=== PATIENT | female | born 1940 | race Caucasian/White ===

== ENCOUNTER → 2017-02-22 | Outpatient (CLI) | payer OTHER, MEDICARE | LOC: BHFA 15:45 | PROVIDERS: ATTEND Internal Medicine Cardiovascular Disease | DX: I48.0 Paroxysmal atrial fibrillation (principal) ==

== ENCOUNTER 2018-03-19 10:14 | Day surgery (SDC) | payer OTHER ==
[2018-03-19] MEDS ORDERED: BENZOCAINE UNIT DOSE SPRAY HURRICAINE MM ONE (10:19)
[2018-03-19] MEDS ORDERED: MIDAZOLAM 2 MG/2 ML VIAL IVP ONE (10:19)
[2018-03-19] MEDS ORDERED: ATROPINE SULFATE 1 MG/10 ML SYR IVP ONE (10:19)
[2018-03-19] MEDS ORDERED: NS 500 ML IV ONE (10:19)
[2018-03-19] MEDS ORDERED: fentaNYL 100 MCG/2 ML INJ IVP ONE (10:19)
--- NOTE | 2018-03-19 10:39 | CPEKG ---
Heart Rate: 98 RR Interval: 612 QRSD Interval: 100 QT Interval: 392 QTC Interval: 501 QRS [place]: 39 T Wave [place]: 61 EKG Severity - ABNORMAL ECG - EKG Impression: ATRIAL FIBRILLATION EKG Impression: NONSPECIFIC T ABNORMALITIES, LATERAL LEADS Electronically Signed By: Wai Perez 19-Mar-2018 11:57:50
[2018-03-19 10:56] LABS: INR 2.03 (0.83-1.16)
[2018-03-19] MEDS ORDERED: PROPOFOL 200 MG/20 ML VIAL ONE (11:31)
--- NOTE | 2018-03-19 11:36 | PDGENHP ---
History & Physical Chief Complaint: symptomatic afib Relevant Physical Exam: s1s2 irreg cta ao3 Cardiorespiratory Assessment: afib for shukri guided dccv
--- NOTE | 2018-03-19 11:53 | PDTEE1 ---
SHUKRI Cardioversion Procedure Procedure: electrical cardioversion, transesophageal echo Indications: atrial fibrillation Consent: signed and in chart Anticoagulation: eliquis Procedural Details: Pads were placed in anterior-posterior position. SHUKRI probe was advanced and standard images obtained. There is no evidence of left atrial or left atrial appendage thrombus. Synchronized cardioversion attempt #1: 100J Results: normal sinus rhythm Conclusions: successful SHUKRI cardioversion (moderate MR on shukri) Patient Problems: Problems Problem Status Onset Atrial fibrillation Acute
--- NOTE | 2018-03-19 12:00 | PDANEPAE ---
ANE History of Present Illness here for ARSLAN/CV ANE Past Medical History - Cardiovascular History Hx Hypertension: No Hx Arrhythmias: Yes Hx Chest Pain: No Hx Coronary Artery / Peripheral Vascular Disease: No Hx CHF / Valvular Disease: No Hx Palpitations: No - Pulmonary History Hx COPD: No Hx Asthma/Reactive Airway Disease: No Hx Recent Upper Respiratory Infection: No Hx Oxygen in Use at Home: No Hx Sleep Apnea: No - Neurologic History Hx Cerebrovascular Accident: No Hx Seizures: No Hx Dementia: No - Endocrine History Hx Diabetes: No Hypothyroid: No Hyperthyroid: No Obesity: no - Renal History Hx Renal Disorders: No ANE Review of Systems Review of systems is: negative Review of Systems: - Exercise capacity Exercise capacity: >=4 METS ANE Patient History - Allergies Allergies/Adverse Reactions: No Known Allergies Allergy (Unverified 05/23/11 11:26) - Home Medications Home medications: home medication list seen and reviewed Home Medications: Herbals/Supplements -Info Only 03/19/18 [Last Taken Unknown] Metoprolol Succinate 50 mg PO DAILY 03/19/18 [Last Taken 03/18/18 07:00] Pradaxa 150 mg PO BID 03/19/18 [Last Taken 03/19/18 08:30] Propafenone HCl ER 325 mg PO BID 03/19/18 [Last Taken 03/18/18 21:00] - NPO status NPO Status: no food or drink >8 hours - Anes Hx Anes Hx: no prior problems - Smoking Hx Smoking Status: Never smoked ANE Labs/Vital Signs - Labs Result Diagrams: 03/19/18 10:35 - Vital Signs Vital Signs: reviewed preoperatively; see RN documention for details Height: 160 cm Weight: 70.3 kg ANE Physical Exam - Airway Neck exam: FROM Mallampati Score: Class 1 - Pulmonary Pulmonary: no respiratory distress - Cardiovascular Cardiovascular: regular rate and rhythym - ASA Status ASA Status: II ANE Anesthesia Plan Anesthesia Plan: GA with mask
--- NOTE | 2018-03-19 12:08 | CPEKG ---
Heart Rate: 59 RR Interval: 1017 P-R Interval: 184 QRSD Interval: 88 QT Interval: 468 QTC Interval: 464 P [place]: 61 QRS [place]: 22 T Wave [place]: 20 EKG Severity - ABNORMAL ECG - EKG Impression: SINUS RHYTHM EKG Impression: LEFT ATRIAL ABNORMALITY EKG Impression: PROBABLE INFERIOR INFARCT, AGE INDETERMINATE EKG Impression: SINUS RHYTHM HAS REPLACED ATRIAL FIBRILLATION ON PRIOR ECG Electronically Signed By: Gato Quintanilla 19-Mar-2018 12:27:07
--- NOTE | 2018-03-19 12:08 | POSTANESTH ---
Post Anesthetic Evaluation Cardiovascular Status: Normal, Stable Respiratory Status: Normal, Stable Level of Consciousness/Mental Status: Can Participate in Eval, Moderately Sleepy Pain Control: Adequate, Prn Tx Ordered Nausea/Vomiting Control: Adequate, Prn Tx Ordered Complications Possibly Related to Anesthesia: None Noted
--- NOTE | 2018-03-22 08:36 | ECHO ---
[email or web address] [address] [address] Main: [phone] Fax: Transesophageal Echocardiography Name: Carl URBANO MR#: [id number] Study Date: 03/19/2018 Study Time: 11:34 AM Date of : 1940 Age: 78 year(s) Height: ( ) Weight: ( ) BSA: Gender: Female Examination: ARSLAN Indication: Atrial Fibrillation Image Quality: Contrast: Requested by: Wai Perez Heart Rate: Rhythm: BP: / Procedure Staff Inspector Optical Instrument: Suzy Scruggs [facility] Reading Physician: Gucci Farris MD Requesting Provider: ARSLAN Exam Details Conclusions: The ejection fraction is visually estimated to be 65 %. No thrombus in left appendage. Moderate mitral valve regurgitation is present. The aortic valve is tri-leaflet. Mild aortic valve regurgitation is present. Mild tricuspid regurgitation is present. There is pericardial fat. There were no contraindications to cardioversion. I proceeded with successful DC cardioversion for indication of paroxysmal and sustained atrial fibrillaiton. Measurements: Chambers Valvular Assessment AV/MV Valvular Assessment TV/PV Normal Normal Normal Name Value Range Name Value Range Name Value Range Visual EF: 65 % Additional Measurements: Findings: Left Ventricle: The ejection fraction is visually estimated to be 65 %. Left Atrial Appendage: No thrombus in left appendage. Patient: Carl URBANO Study Date: 03/19/2018 Page 1 of 2 11:34 AM Mitral Valve: Moderate mitral valve regurgitation is present. Aortic Valve: The aortic valve is tri-leaflet. Mild aortic valve regurgitation is present. Tricuspid Valve: Mild tricuspid regurgitation is present. Pericardium: There is pericardial fat. l1n (No Signature Object) Patient: Carl URBANO Study Date: 03/19/2018 Page 2 of 2 11:34 AM [id number]
== END 2018-03-19 13:45 | disposition home or self-care (01) ==
LOC: FCATH 10:14
PROVIDERS: ATTEND Internal Medicine Cardiovascular Disease
PROC: B245ZZ4 Ultrasonography of Left Heart, Transesophageal (ICD-10-PCS; principal; 2018-03-19)
PROC: 5A2204Z Restoration of Cardiac Rhythm, Single (ICD-10-PCS; principal; 2018-03-19)
DX: I48.1 Persistent atrial fibrillation (principal)
CPT/HCPCS: J0461; J2704

== ENCOUNTER 2018-03-27 07:29 | Day surgery (SDC) | payer OTHER ==
[2018-03-27] MEDS ORDERED: MIDAZOLAM 2 MG/2 ML VIAL IVP ONE (07:31)
[2018-03-27] MEDS ORDERED: fentaNYL 100 MCG/2 ML INJ IVP ONE (07:31)
[2018-03-27] MEDS ORDERED: NS 500 ML IV ONE (07:31)
[2018-03-27] MEDS ORDERED: ATROPINE SULFATE 1 MG/10 ML SYR IVP ONE (07:31)
--- NOTE | 2018-03-27 07:52 | CPEKG ---
Heart Rate: 84 RR Interval: 714 QRSD Interval: 130 QT Interval: 440 QTC Interval: 521 QRS [place]: 52 T Wave [place]: 71 EKG Severity - ABNORMAL ECG - EKG Impression: ATRIAL FIBRILLATION Electronically Signed By: Wai Perez 27-Mar-2018 09:19:33
[2018-03-27 08:16] LABS: INR 2.84 (0.83-1.16); PROTIME(PATIENT) 29.7 SEC (12.0-15.0)
--- NOTE | 2018-03-27 09:06 | PDGENHP ---
History & Physical Chief Complaint: symptomatic afib Relevant Physical Exam: s1s2 irreg. cta. ao3
[2018-03-27] MEDS ORDERED: PROPOFOL 200 MG/20 ML VIAL ONE (09:24)
--- NOTE | 2018-03-27 09:30 | PDANEPAE ---
ANE Past Medical History - Cardiovascular History Hx Hypertension: No Hx Arrhythmias: Yes Hx Chest Pain: No Hx Coronary Artery / Peripheral Vascular Disease: No Hx CHF / Valvular Disease: No Hx Palpitations: No - Pulmonary History Hx COPD: No Hx Asthma/Reactive Airway Disease: No Hx Recent Upper Respiratory Infection: No Hx Oxygen in Use at Home: No Hx Sleep Apnea: No - Neurologic History Hx Cerebrovascular Accident: No Hx Seizures: No Hx Dementia: No - Endocrine History Hx Diabetes: No - Renal History Hx Renal Disorders: No ANE Review of Systems Review of Systems: ANE Patient History - Allergies Allergies/Adverse Reactions: No Known Allergies Allergy (Unverified 05/23/11 11:26) - Home Medications Home Medications: Herbals/Supplements -Info Only 03/19/18 [Last Taken Unknown] Metoprolol Succinate 50 mg PO DAILY 03/19/18 [Last Taken 03/26/18 07:00] Pradaxa 150 mg PO BID 03/19/18 [Last Taken 03/27/18 06:45] Propafenone HCl ER 325 mg PO BID 03/19/18 [Last Taken 03/26/18 21:00] - Smoking Hx Smoking Status: Never smoked ANE Labs/Vital Signs - Labs Result Diagrams: 03/27/18 08:00 - Vital Signs Height: 157.48 cm Weight: 70.307 kg ANE Physical Exam - Airway Neck exam: FROM Mallampati Score: Class 1 Mouth exam: normal dental/mouth exam - Pulmonary Pulmonary: no respiratory distress, no rales or rhonchi, clear to auscultation - Cardiovascular Cardiovascular: regular rate and rhythym, irregularly irregular - ASA Status ASA Status: III ANE Anesthesia Plan Anesthesia Plan: GA with mask
--- NOTE | 2018-03-27 09:37 | PDCARD ---
Cardioversion Procedure Procedure: electrical cardioversion Indications: atrial fibrillation Consent: signed and in chart Anticoagulation: eliquis Procedural Details: Pads were placed in anterior-posterior position. Synchronized cardioversion attempt #1: 100J Results: normal sinus rhythm (3.2 sec post conversion pause) Patient Problems: Problems Problem Status Onset Atrial fibrillation Acute
[2018-03-27] MEDS ORDERED: LR 500 ML IV PRN (09:41)
[2018-03-27] MEDS ORDERED: ONDANSETRON 4 MG/2 ML VIAL IVP PRN (09:41)
[2018-03-27] MEDS ORDERED: NALOXONE HCL 0.4 MG/ML INJ IVP PRN (09:41)
--- NOTE | 2018-03-27 09:42 | POSTANESTH ---
Post Anesthetic Evaluation Cardiovascular Status: Normal, Stable Respiratory Status: Normal, Stable, Similar to Pre-op Cond. Level of Consciousness/Mental Status: Can Participate in Eval Pain Control: Adequate, Prn Tx Ordered Nausea/Vomiting Control: Adequate, Prn Tx Ordered Complications Possibly Related to Anesthesia: None Noted
--- NOTE | 2018-03-27 09:46 | CPEKG ---
Heart Rate: 53 RR Interval: 1132 P-R Interval: 188 QRSD Interval: 100 QT Interval: 492 QTC Interval: 462 P [place]: 53 QRS [place]: 7 T Wave [place]: -10 EKG Severity - ABNORMAL ECG - EKG Impression: SINUS RHYTHM EKG Impression: LEFT ATRIAL ABNORMALITY Electronically Signed By: Wai Perez 27-Mar-2018 10:34:40
== END 2018-03-27 10:42 | disposition home or self-care (01) ==
LOC: FCATH 07:29
PROVIDERS: ATTEND Internal Medicine Cardiovascular Disease
PROC: 5A2204Z Restoration of Cardiac Rhythm, Single (ICD-10-PCS; principal; 2018-03-27)
DX: I48.1 Persistent atrial fibrillation (principal); I34.0 Nonrheumatic mitral (valve) insufficiency; I10 Essential (primary) hypertension; I25.10 Atherosclerotic heart disease of native coronary artery without angina pectoris; Z79.01 Long term (current) use of anticoagulants
CPT/HCPCS: J2704

== ENCOUNTER 2018-10-01 12:05 | Inpatient (IN) | payer OTHER ==
[2018-10-01] MEDS ORDERED: ATROPINE SULFATE 1 MG/10 ML SYR IVP ONE (12:15)
[2018-10-01] MEDS ORDERED: NS 500 ML IV ONE (12:15)
[2018-10-01] MEDS ORDERED: MIDAZOLAM 2 MG/2 ML VIAL IVP ONE (12:15)
[2018-10-01] MEDS ORDERED: BENZOCAINE UNIT DOSE SPRAY HURRICAINE MM ONE (12:15)
[2018-10-01] MEDS ORDERED: fentaNYL 100 MCG/2 ML INJ IVP ONE (12:15)
[2018-10-01 12:49] LABS: INR 1.62 (0.83-1.16); PROTIME(PATIENT) 19.4 SEC (12.0-15.0)
--- NOTE | 2018-10-01 13:01 | PDANEPAE ---
ANE Past Medical History - Cardiovascular History Hx Hypertension: No Hx Arrhythmias: Yes Hx Chest Pain: No Hx Coronary Artery / Peripheral Vascular Disease: No Hx CHF / Valvular Disease: No Hx Palpitations: No - Pulmonary History Hx COPD: No Hx Asthma/Reactive Airway Disease: No Hx Recent Upper Respiratory Infection: No Hx Oxygen in Use at Home: No Hx Sleep Apnea: No - Neurologic History Hx Cerebrovascular Accident: No Hx Seizures: No Hx Dementia: No - Endocrine History Hx Diabetes: No - Renal History Hx Renal Disorders: No ANE Review of Systems Review of Systems: ANE Patient History - Allergies Allergies/Adverse Reactions: No Known Allergies Allergy (Unverified 05/23/11 11:26) - Home Medications Home Medications: Herbals/Supplements -Info Only 03/19/18 [Last Taken Unknown] Metoprolol Succinate 50 mg PO DAILY 03/19/18 [Last Taken 09/30/18 07:00] Pradaxa 150 mg PO BID 03/19/18 [Last Taken 10/01/18 08:00] Allopurinol 200 mg PO DAILY 10/01/18 [Last Taken 09/30/18 07:00] - Smoking Hx Smoking Status: Never smoked ANE Labs/Vital Signs - Labs Result Diagrams: 10/01/18 12:24 - Vital Signs Height: 160 cm Weight: 70.3 kg ANE Physical Exam - Airway Neck exam: FROM Mallampati Score: Class 1 Mouth exam: normal dental/mouth exam - Pulmonary Pulmonary: no respiratory distress - Cardiovascular Cardiovascular: irregularly irregular, tachycardia - ASA Status ASA Status: III ANE Anesthesia Plan Anesthesia Plan: GA with mask
[2018-10-01] MEDS ORDERED: SUCCINYLCHOLINE CHLORIDE 200 MG/10 ML SYR IVP ONE (13:05)
[2018-10-01] MEDS ORDERED: LIDOCAINE 1% 5 ML SDV ONE (13:05)
[2018-10-01] MEDS ORDERED: PROPOFOL 200 MG/20 ML VIAL ONE (13:05)
--- NOTE | 2018-10-01 13:46 | PDGENHP ---
History & Physical Chief Complaint: symptomatic afib afl History of Present Illness: palpitations Relevant Physical Exam: s1s2 irreg tach. cta. ao3 Cardiorespiratory Assessment: for shukri cv. then admit for sotalol
[2018-10-01] MEDS ORDERED: ACETAMINOPHEN 325 MG TAB PO PRN (14:03)
--- NOTE | 2018-10-01 14:07 | PDTEE1 ---
ARSLAN Cardioversion Procedure Procedure: electrical cardioversion, transesophageal echo Indications: other (atrial flutter) Consent: signed and in chart Anticoagulation: other (Pradaxa) Procedural Details: Pads were placed in anterior-posterior position. ARSLAN probe was advanced and standard images obtained. There is no evidence of left atrial or left atrial appendage thrombus. Synchronized cardioversion attempt #1: 100J Synchronized cardioversion attempt #2: 200J Results: normal sinus rhythm Conclusions: successful ARSLAN cardioversion Patient Problems: Problems Problem Status Onset Atrial fibrillation Acute
--- NOTE | 2018-10-01 14:48 | POSTANESTH ---
Post Anesthetic Evaluation Cardiovascular Status: Normal, Stable Respiratory Status: Normal, Stable Level of Consciousness/Mental Status: Can Participate in Eval Pain Control: Adequate, Prn Tx Ordered Nausea/Vomiting Control: Adequate, Prn Tx Ordered Complications Possibly Related to Anesthesia: None Noted
--- NOTE | 2018-10-01 15:00 | PDMN ---
Medical Necessity Medical necessity: [facility] [place] af[place]: A-1 day: INPT for : symptomatic afib/afl admitted for sotalol loading
[2018-10-01] MEDS: SOTALOL HCL 80 MG TAB PO SCH (15:52)
[2018-10-01] MEDS: DABIGATRAN ETEXILATE MESYL 150 MG CAP PO SCH (20:45)
[2018-10-02] MEDS: SOTALOL HCL 80 MG TAB PO SCH ×3 (00:05→20:34)
[2018-10-02 05:05] LABS: PLATELET COUNT 182 10^3/uL (150-400)
--- NOTE | 2018-10-02 08:21 | PDCARPN ---
Cardiology Progress Note Chief Complaint: Paroxysmal atrial fibrillation and atrial flutter. Admitted for Sotolol loading s/p ARSLAN and DCCV yesterday 10/01/2018 Assessment/Plan: Assessment: Baseline QTc 459m in NSR. Ms. Palmer received her first dose of Sotolol 120mg yesterday evening. ECG 2hours post-dose demonstrated NSR with QTc 481ms. Ms. Palmer reports feeling quite well this morning without specific concerns. No issues overnight aside from nocturnal hypoxia required 2L supplemental oxygen. Normal Sp02 on room air today. Patient is ambulating around her room without issue. No chest discomfort, lightheadedness, dizziness, palpitations or syncope. Plan: Continue Sotalol loading with 2nd dose this morning, decrease to 80mg BID and continue ECG monitoring 2-hours post-dose. Continue Pradaxa for anticoagulation - [id number] score = 4. 10/02/18 08:28 Subjective: No issues or concerns. Reviewed/Discussed With: multidisciplinary team Time Spent with Patient: greater than 25 minutes Time Spent with Patient: Greater than 25 minutes spent on this patients care, greater than 50% of time spent counseling, educating, and coordinating care regarding the above mentioned plan. Objective: Vital Signs (8 Hrs) Temp Pulse Resp BP Pulse Ox 10/02/18 07:51 36.6 C 59 L 18 153/86 H 94 10/02/18 04:00 36.6 C 60 16 118/61 96 10/02/18 01:35 40 L 10/02/18 01:08 83 L Intake/Output (24 Hrs) 10/01/18 10/02/18 10/03/18 05:59 05:59 05:59 Intake Total 650 Output Total 600 Balance 50 Intake: Oral (ml) 650 Output: Urine (ml) 600 Toilet 600 Other: Weight 70.3 kg Intake Quantity Yes Sufficient Number of Voids Toilet 2 Result Diagrams: 10/02/18 03:30 10/02/18 03:30 EKG: ECG at 1939 last night demonstrated QTc 481ms. - Physical Exam Constitutional: WDWN Cardiovascular: regular rate and rhythm Gastrointestinal: normoactive bowel sounds Skin: no edema Neurologic: AAOx3 Psychiatric: interactive ICD10 Worksheet Patient Problems: Problems Problem Status Onset Atrial fibrillation Acute
[2018-10-02] MEDS: DABIGATRAN ETEXILATE MESYL 150 MG CAP PO SCH ×2 (09:14→20:34)
[2018-10-02] MEDS: ALLOPURINOL 100 MG TAB PO SCH (09:15)
--- NOTE | 2018-10-02 12:00 | ASMTCMCOM ---
CM Note CM Note Notes: 10/02/2018 Case Management Note Reviewed chart. Discussed with RN. Pt admitted for sotalol loading. There are no case management d/c needs identified d/t pt independence with ADL's and family support. There are no therapy evals ordered at this time. Case Management d/c poc: anticipating independent with follow up as directed. Case Management available if needs change. Date Signed: 10/02/2018 11:59 AM Electronically Signed By:Sima Aguayo RN
[2018-10-02] MEDS ORDERED: DIPHENHYDRAMINE CREAM TP PRN (17:32)
[2018-10-03] MEDS: ALLOPURINOL 100 MG TAB PO SCH (08:21)
[2018-10-03] MEDS: DABIGATRAN ETEXILATE MESYL 150 MG CAP PO SCH (08:21)
[2018-10-03] MEDS: SOTALOL HCL 80 MG TAB PO SCH ×2 (08:42→14:24)
--- NOTE | 2018-10-03 09:09 | PDCARPN ---
Cardiology Progress Note Assessment/Plan: Assessment: Baseline QTc 459m in NSR. Ms. Palmer received her first dose of Sotalol 120mg 10/01 with ECG 2hours post-dose demonstrating NSR with QTc 481ms. Sotalol dose decreased to 80mg BID at that time. Post-Sotalol ECGs have demonstrated stable QTc (max 477ms) since that time. Telemetry demonstrates sinus bradycardia with HR in the mid-40s at night. Ms. Palmer reports feeling quite well this morning without specific concerns. She continues to wear 2L supplement oxygen at night. Patient is ambulating around her room independently without issue. No chest discomfort, lightheadedness, dizziness, palpitations or syncope. Plan: 1. Continue Sotalol 80mg BID with ECG monitoring 2-hours post-dose. We can give her 5th dose today around 1430 with repeat ECG and discharge 2 hours later. 2. Holter monitor to be placed upon discharge to monitor sinus bradycardia 3. Pulse oximetry to be ordered discharge 4. Continue Pradaxa for anticoagulation - [id number] score = 4. 10/03/18 09:06 Subjective: No issues overnight. Reviewed/Discussed With: multidisciplinary team Time Spent with Patient: greater than 25 minutes Time Spent with Patient: Greater than 25 minutes spent on this patients care, greater than 50% of time spent counseling, educating, and coordinating care regarding the above mentioned plan. Objective: Vital Signs (8 Hrs) Temp Pulse Resp BP Pulse Ox 10/03/18 08:00 36.4 C 59 L 16 164/85 H 94 10/03/18 03:58 36.5 C 47 L 14 149/73 H 94 Intake/Output (24 Hrs) 10/02/18 10/03/18 10/04/18 05:59 05:59 05:59 Intake Total 650 2050 Output Total 600 1000 Balance 50 1050 Intake: Oral (ml) 650 2050 Output: Urine (ml) 600 1000 Toilet 600 1000 Other: Weight 70.3 kg Intake Quantity Yes Yes Sufficient Number of Voids Toilet 2 4 Result Diagrams: 10/02/18 03:30 10/02/18 03:30 EKG: NSR and sinus bradycardia with HR in the mid-40s overnight. ICD10 Worksheet Patient Problems: Problems Problem Status Onset Atrial fibrillation Acute
[2018-10-03 16:43] VITALS: BP 150/84
--- NOTE | 2018-10-03 21:36 | GDS ---
ADMISSION DIAGNOSIS: Paroxysmal atrial fibrillation. DISCHARGE DIAGNOSIS: Paroxysmal atrial fibrillation, status-post sotalol loading. HOSPITAL COURSE: Ms. Palmer was admitted October 01 for sotalol loading in the setting of symptomatic atrial fibrillation, She had a prior ablation in 2010. Her atrial fibrillation recently became persistent and she was admitted for sotalol loading at that time. Baseline QTC 459 msec in normal sinus rhythm. The patient then received her first dose of sotalol on the evening of October 01. ECG 2 hours post dose demonstrated normal sinus rhythm with QTC 481 msec. Her sotalol dose was decreased to 80 mg b.i.d. at that time. Post-sotalol ECGs since then have demonstrated stable QTC with max QTC measuring 477 msec. Her telemetry demonstrated 1 brief episode of atrial fibrillation on the evening of October 01 without any recurrence since that time. The patient reports feeling quite well overall. She denies any chest discomfort, lightheadedness, dizziness, palpitations, syncope, or other concerning symptoms. She continues to ambulate independently without issue. She has required 2 L of supplemental oxygen at night. No prior history of sleep apnea evaluation or nocturnal oxygen study. PHYSICAL EXAMINATION: GENERAL: Patient appears quite well overall without any concerns at this time. VITAL SIGNS: Blood pressure 133/63, heart rate 57, SpO2 93% on room air. DISCHARGE PLAN: 1. Continue sotalol 80 mg b.i.d. There is some concern regarding patient's bradycardia with this dose. We will plan to place a 48-hour Holter monitor upon discharge to evaluate rate and rhythm with this medication. 2. Nocturnal oxygen study to be completed at home. 3. Continue Pradaxa for oral anticoagulation. CHADS-VASc score 4. 4. Follow up in clinic as scheduled. /[id number]/MODL MTDD
--- NOTE | 2018-10-03 21:57 | CPEKG ---
Test Reason : OPEN Blood Pressure : / mmHG Vent. Rate : 068 BPM Atrial Rate : 069 BPM P-R Int : 144 ms QRS Dur : 072 ms QT Int : 416 ms P-R-T Axes : 069 007 035 degrees QTc Int : 443 ms Sinus rhythm Left atrial enlargement Confirmed by Gucci Farris ([id number]) on 10/03/2018 9:57:08 PM Referred By: Confirmed By:Gucci Farris
--- NOTE | 2018-10-03 22:06 | CPEKG ---
Test Reason : OPEN Blood Pressure : / mmHG Vent. Rate : 058 BPM Atrial Rate : 057 BPM P-R Int : 146 ms QRS Dur : 072 ms QT Int : 480 ms P-R-T Axes : 076 089 067 degrees QTc Int : 472 ms Sinus rhythm Borderline right axis deviation Anteroseptal infarct versus lead placement Confirmed by Gucci Farris ([id number]) on 10/03/2018 10:05:32 PM Referred By: Confirmed By:Gucci Farris
--- NOTE | 2018-10-03 22:12 | CPEKG ---
Test Reason : OPEN Blood Pressure : / mmHG Vent. Rate : 058 BPM Atrial Rate : 058 BPM P-R Int : 144 ms QRS Dur : 073 ms QT Int : 482 ms P-R-T Axes : 076 086 066 degrees QTc Int : 474 ms Sinus rhythm Left atrial enlargement Borderline right axis deviation Old Anteroseptal infarct versus lead placement Confirmed by Gucci Farris ([id number]) on 10/03/2018 10:11:53 PM Referred By: Confirmed By:Gucci Farris
--- NOTE | 2018-10-03 22:50 | CPEKG ---
Test Reason : OPEN Blood Pressure : / mmHG Vent. Rate : 171 BPM Atrial Rate : 163 BPM P-R Int : 040 ms QRS Dur : 070 ms QT Int : 275 ms P-R-T Axes : 000 019 -43 degrees QTc Int : 464 ms Atrial flutter with rapid V-rate Low voltage, precordial leads Repolarization abnormality, prob rate related Confirmed by Gucci Farris ([id number]) on 10/03/2018 10:50:25 PM Referred By: Confirmed By:Gucci Farris
--- NOTE | 2018-10-03 22:51 | CPEKG ---
Test Reason : OPEN Blood Pressure : / mmHG Vent. Rate : 089 BPM Atrial Rate : 089 BPM P-R Int : 155 ms QRS Dur : 073 ms QT Int : 377 ms P-R-T Axes : 061 001 017 degrees QTc Int : 459 ms Sinus rhythm has replaced atrial flutter Probable left atrial enlargement Low voltage, precordial leads Confirmed by Gucci Farris ([id number]) on 10/03/2018 10:51:18 PM Referred By: Confirmed By:Gucci Farris
--- NOTE | 2018-10-03 22:52 | CPEKG ---
Test Reason : OPEN Blood Pressure : / mmHG Vent. Rate : 053 BPM Atrial Rate : 052 BPM P-R Int : 148 ms QRS Dur : 073 ms QT Int : 512 ms P-R-T Axes : 068 022 018 degrees QTc Int : 481 ms Sinus bradycardia Left atrial enlargement Anteroseptal infarct, age indeterminate Confirmed by Gucci Farris ([id number]) on 10/03/2018 10:52:12 PM Referred By: Confirmed By:Gucci Farris
--- NOTE | 2018-10-03 22:56 | CPEKG ---
Test Reason : OPEN Blood Pressure : / mmHG Vent. Rate : 056 BPM Atrial Rate : 056 BPM P-R Int : 139 ms QRS Dur : 075 ms QT Int : 487 ms P-R-T Axes : 069 018 016 degrees QTc Int : 471 ms Sinus rhythm Probable left atrial enlargement Cannot rule out prior anteroseptal infarct Confirmed by Gucci Farris ([id number]) on 10/03/2018 10:55:55 PM Referred By: Confirmed By:Gucci Farris
--- NOTE | 2018-10-03 22:57 | CPEKG ---
Test Reason : OPEN Blood Pressure : / mmHG Vent. Rate : 050 BPM Atrial Rate : 050 BPM P-R Int : 148 ms QRS Dur : 077 ms QT Int : 522 ms P-R-T Axes : 068 041 028 degrees QTc Int : 477 ms Sinus rhythm Probable left atrial enlargement Possible prior anterior myocardial infarction Confirmed by Gcuci Farris ([id number]) on 10/03/2018 10:57:01 PM Referred By: Confirmed By:Gucci Farris
--- NOTE | 2018-10-05 13:08 | ECHO ---
[email or web address] [place] [id number] Main: [phone] Fax: Transesophageal Echocardiography Name: Carl URBANO MR#: [id number] Study Date: 10/01/2018 Study Time: 12:38 PM Date of : 1940 Age: 78 year(s) Height: ( ) Weight: ( ) BSA: Gender: Female Examination: ARSLAN Indication: Atrial Flutter Image Quality: Contrast: Requested by: Wai Perez Heart Rate: Rhythm: BP: 111 mmHg/89 mmHg Procedure Staff Energy Trader: Suzy Scruggs [facility] Reading Physician: Wai Perez MD Requesting Provider: ARSLAN Exam Details Measurements: Chambers Valvular Assessment AV/MV Valvular Assessment TV/PV Normal Normal Normal Name Value Range Name Value Range Name Value Range Additional Measurements: Findings: Left Atrial Appendage: No thrombus in left appendage. Multi-lobular atrial appendage.. Mitral Valve: Moderate mitral valve regurgitation is present. Aortic Valve: The aortic valve is tri-leaflet. Mild aortic valve regurgitation is present. Exam Comments: Due to pt's condition, ARSLAN was terminated.. l1n (No Signature Object) Patient: Carl URBANO Study Date: 10/01/2018 Page 1 of 2 12:38 PM Patient: Carl URBANO Study Date: 10/01/2018 Page 2 of 2 12:38 PM [id number]
== END 2018-10-03 17:35 | disposition home or self-care (01) | DRG 310 ==
LOC: FCATH 12:05 → F2W 14:05
PROVIDERS: ADMIT Internal Medicine Cardiovascular Disease; ATTEND Internal Medicine Cardiovascular Disease
PROC: B245ZZ4 Ultrasonography of Left Heart, Transesophageal (ICD-10-PCS; principal; 2018-10-01)
PROC: 5A2204Z Restoration of Cardiac Rhythm, Single (ICD-10-PCS; principal; 2018-10-01)
DX: I48.0 Paroxysmal atrial fibrillation (principal); Z79.01 Long term (current) use of anticoagulants
CPT/HCPCS: J0330; J0461; J2704